=== PATIENT | female | born 1985 | race Caucasian/White ===

== ENCOUNTER → 2019-07-02 09:40 | Outpatient (BNVA) | payer MEDICAID, SELFPAY | PROVIDERS: Family Provider Nurse Practitioner; PCP Nurse Practitioner; Visit Provider Nurse Practitioner Family | DX: R11.0 Nausea (principal); J30.9 Allergic rhinitis, unspecified | CPT/HCPCS: 81025 ==

== ENCOUNTER → 2019-09-01 09:16 | Outpatient (BNVA) | payer MEDICAID, SELFPAY | PROVIDERS: Family Provider Nurse Practitioner; PCP Nurse Practitioner Family; Visit Provider Anesthesiology | DX: Z76.89 Persons encountering health services in other specified circumstances (principal) ==

== ENCOUNTER → 2019-12-09 10:01 | Outpatient (BNVA) | payer MEDICAID, SELFPAY | PROVIDERS: Family Provider Nurse Practitioner; PCP Nurse Practitioner Family; Visit Provider Nurse Practitioner | DX: M47.816 Spondylosis without myelopathy or radiculopathy, lumbar region (principal); M54.9 Dorsalgia, unspecified; Z79.891 Long term (current) use of opiate analgesic | CPT/HCPCS: 99213 ==

== ENCOUNTER → 2019-12-18 11:59 | Outpatient (BNVA) | payer MEDICAID, SELFPAY | PROVIDERS: Family Provider Nurse Practitioner; PCP Nurse Practitioner Family; Visit Provider Nurse Practitioner Family | DX: R53.83 Other fatigue (principal); I10 Essential (primary) hypertension; J30.9 Allergic rhinitis, unspecified; I34.1 Nonrheumatic mitral (valve) prolapse | CPT/HCPCS: 80053; 80061; 82306; 82607; 84443; 85025 ==

== ENCOUNTER → 2020-01-01 11:00 | Outpatient (BNVA) | payer MEDICAID, SELFPAY | PROVIDERS: Family Provider Nurse Practitioner; PCP Nurse Practitioner Family; Visit Provider Nurse Practitioner Family | DX: Z12.4 Encounter for screening for malignant neoplasm of cervix (principal); Z01.419 Encounter for gynecological examination (general) (routine) without abnormal findings; R53.83 Other fatigue | CPT/HCPCS: 88175 ==

== ENCOUNTER → 2020-03-07 10:56 | Outpatient (BNVA) | payer MEDICAID, SELFPAY | PROVIDERS: Family Provider Nurse Practitioner; PCP Nurse Practitioner Family; Visit Provider Nurse Practitioner Family | DX: E55.9 Vitamin D deficiency, unspecified (principal); R07.9 Chest pain, unspecified; R53.82 Chronic fatigue, unspecified | CPT/HCPCS: 82306 ==

== ENCOUNTER → 2020-04-06 13:49 | Outpatient (BNVA) | payer MEDICAID, SELFPAY | PROVIDERS: Family Provider Nurse Practitioner; PCP Nurse Practitioner Family; Visit Provider Anesthesiology | DX: M47.816 Spondylosis without myelopathy or radiculopathy, lumbar region (principal); M51.36 Other intervertebral disc degeneration, lumbar region; M51.26 Other intervertebral disc displacement, lumbar region; M54.9 Dorsalgia, unspecified; Z79.891 Long term (current) use of opiate analgesic | CPT/HCPCS: 99212; 99214 ==

== ENCOUNTER 2020-04-20 09:46 | Outpatient (CLI) | payer MEDICAID, SELFPAY ==
--- NOTE | 2020-04-20 10:15 | USCV_ITS ---
Yadiel Valdez Age: 34 Gender: F : 1985 Exam Date: 04/20/2020 10:15 Ordering Phys: Anju Solorzano MD ([email or web address]) Technologist: Rowena Pace [place] [facility] [place]: SVT BP: / HR: 58 Rhythm: Sinus Technical Quality: Adequate MEASUREMENTS (Male / Female) Normal Values 2D ECHO LV Diastolic Diameter PLAX 4.3 cm 4.2 - 5.9 / 3.9 - 5.3 cm LV Systolic Diameter PLAX 2.2 cm LV Chamber Size 3.3 cm IVS Diastolic Thickness 1.0 cm 0.6 - 1.0 / 0.6 - 0.9 cm IVS Systolic Thickness 1.5 cm LVPW Diastolic Thickness 1.1 cm 0.6 - 1.0 / 0.6 - 0.9 cm LVPW Systolic Thickness 1.6 cm RV Chamber Size 2.3 cm LVOT Diameter 2.0 cm LV Ejection Fraction 2D Teich 79.4 % LV Ejection Fraction MOD 2C 68.3 % LV Ejection Fraction 2C AL 70.7 % LA Diameter 3.2 cm LA Width 2.7 cm LA Height 4.1 cm RA Width 2.9 cm RA Height 3.8 cm Aorta at Sinotubular Diameter 2.9 cm M-MODE LV Diastolic Diameter MM 4.2 cm 4.2 - 5.9 / 3.9 - 5.3 cm LV Systolic Diameter MM 2.8 cm LV Ejection Fraction MM Teich 62.1 % IVS Diastolic Thickness MM 1.0 cm 0.6 - 1.0 / 0.6 - 0.9 cm IVS Systolic Thickness MM 1.6 cm LVPW Diastolic Thickness MM 1.2 cm 0.6 - 1.0 / 0.6 - 0.9 cm LVPW Systolic Thickness MM 1.5 cm RV Diastolic Diameter MM 1.2 cm Aortic Annulus Diameter 3.4 cm LA Ao Ratio MM 1.1 MV E Point Septal Separation 0.5 cm DOPPLER AV Peak Velocity 142.0 cm/s LVOT Peak Velocity 78.0 cm/s AV Area Cont Eq vti 2.2 cm squared AV Area Cont Eq pk 1.8 cm squared MV Area PHT 2.7 cm squared Mitral E to A Ratio 1.5 MV E' Velocity 52.5 cm/s Mitral E to MV E' Ratio 7.4 Mitral E to LV E' Lateral Ratio 6.7 Mitral E to LV E' Septal Ratio 8.2 TR Peak Velocity 240.7 cm/s TR Peak Gradient 23.2 mmHg TR Mean Velocity 183.2 cm/s TR Mean Gradient 14.5 mmHg TR Velocity Time Integral 77.0 cm TV Peak E Velocity 73.0 cm/s Right Atrial Pressure 3.0 mmHg Pulmonary Artery Systolic Pressu 26.2 mmHg PV Peak Velocity 64.0 cm/s RV Acceleration Time 0.1 s RV Ejection Time 0.3 s RV AcT/ET 0.3 FINDINGS Left Ventricle Normal left ventricular size and systolic function, EF 64 %. No regional wall motion abnormalities. Right Ventricle Normal right ventricular size and systolic function. Right Atrium Normal right atrial size. Left Atrium Normal left atrial size. Mitral Valve Mild mitral valve regurgitation. Multiple regurgitant jets were noted Aortic Valve No gross abnormalities noted Tricuspid Valve Mild tricuspid valve regurgitation. Pulmonic Valve No gross abnormalities noted Pericardium No pericardial or pleural effusion. Aorta Normal aortic annulus size. CONCLUSIONS Normal left ventricular size and systolic function, EF 64 %. No regional wall motion abnormalities. Mild tricuspid valve regurgitation. Mild mitral regurgitation with multiple regurgitant jets. Normal pulmonary artery peak systolic pressure of 26 mmHg There is no pericardial effusion. There are no intracardiac masses. No intraventricular shunts, based on color flow Doppler examination No previous study is available for comparison. Dr Anju Solorzano MD [facility] (Electronically Signed) Final Date: 20 April 2020 17:31 S
== END 2020-04-20 09:47 | disposition home or self-care (01) ==
LOC: RAD 09:51
PROVIDERS: PCP Nurse Practitioner Family; Visit Provider Internal Medicine Cardiovascular Disease
DX: R07.89 Other chest pain (principal); I34.1 Nonrheumatic mitral (valve) prolapse; I47.1 Supraventricular tachycardia; I08.1 Rheumatic disorders of both mitral and tricuspid valves
CPT/HCPCS: 93306

== ENCOUNTER 2020-05-02 08:25 | Outpatient (CLI) | payer MEDICAID, SELFPAY ==
--- NOTE | 2020-05-02 09:27 | NMCV_ITS ---
NM gretel perf SPECT r/s* [id number] Yadiel Valdez Age: 34 Gender: F : 1985 Exam Date: 05/02/2020 09:27 Ordering Phys: Anju Solorzano MD ([email or web address]) Technologist: CHELSEA Heck Exam Location: [facility] Indications: CHEST PAIN STRESS TEST [facility] IMAGE PROTOCOL Rest/Stress 1 Lexiscan Day Radiopharmaceutical Dose (mCi) Administration Site Administered by Rest: Tc-99m 10.6 IV CHELSEA Meek Sestamibi Stress:Tc-99m 32.9 IV CHELSEA Meek Sestamibi Rest: 02-May-2020 60 Discovery 630 Stress: 02-May-2020 30 Discovery 630 0.4mg Lexiscan. Images obtained in supine and prone position. SPECT RESULTS Technical Quality: Excellent Raw Data Analysis: Normal Image Corrections: No attenuation or motion correction applied Summed Stress Score: 13 Summed Rest Score: 2 Summed Difference Score: 11 PERFUSION FINDINGS Moderate area of moderately decreases uptake in the mid and apical inferior, mid inferolateral, apical lateral, apical septal and LV apex. Significant reversibility was noted in these regions except the apical lateral region. FUNCTIONAL RESULTS (calculated via Gated SPECT) Stress Image LV EF (%): 83 Stress EDV (mL):102 TID: 0.95 Stress ESV (mL):17 FUNCTIONAL FINDINGS: Segmental wall motion analysis revealing no gross wall motion of normalities. IMPRESSIONS 1. Myocardial perfusion imaging revealing moderate area of reversible defect in the inferior, inferolateral and apical regions, suggestive of ischemia predominantly in the distribution of the right coronary artery with some involvement of the left anterior descending and circumflex arteries. 2. Normal LV ejection fraction of 83%. 3. LV wall motion analysis revealing no gross wall motion normalities. 4. Normal LV volume. No similar previous studies available for comparison Dr Anju Solorzano MD [facility] (Electronically Signed) Final Date: 03 May 2020 12:48 S
--- NOTE | 2020-05-02 09:27 | ECG_ITS ---
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 Interpretive Statements NAME OF STUDY: LEXISCAN SESTAMIBI STRESS TEST INDICATION: Chest Pain, PROCEDURE: At the baseline, the EKG revealed normal sinus rhythm with a normal ST-T's. The baseline blood pressure was 123/75 mm Hg with a heart rate of 70 beats/min. Lexiscan was infused over a period of 20 seconds. A total of 0.4 milligrams of Lexiscan was infused. The stress phase was continued for a total of 5 minutes. Heart rate at the end of the stress phase was 99 with a blood pressure 138/79. The EKG at the peak infusion revealed no significant changes. Sestamibi was injected 20 seconds after the Lexiscan infusion. Blood pressure at the end of the recovery phase was 137/77 with a heart rate of 97 per minute. CONCLUSION: 1. No significant EKG changes with the LexiScan infusion 2. No LexiScan induced chest pain or cardiac arrhythmia 3. Normal blood pressure and heart rate response 4. Sestamibi/sestamibi perfusion scan pending; see separate report. Electronically Signed On 05-06-2020 16:31:31 IT CORPORATE RECRUITER by Anju Solorzano M.D. [id number]
[2020-05-02 09:28] VITALS: BMI 42.6
[2020-05-02 09:30] LABS: HCG Qualitative Urine. Negative (Negative)
[2020-05-02 11:26] VITALS: BP 144/76; PULSE 100
[2020-05-02] MEDS: regadenoson 0.4 Mg/5 ml Syringe IVP (11:26)
== END 2020-05-02 08:26 | disposition home or self-care (01) ==
LOC: CDL 08:26
PROVIDERS: PCP Nurse Practitioner Family; Visit Provider Internal Medicine Cardiovascular Disease
DX: R07.9 Chest pain, unspecified (principal)
CPT/HCPCS: 78452; 81025; 93017; A9500; J2785

== ENCOUNTER 2020-05-25 10:22 | Outpatient (CLI) | payer MEDICAID, SELFPAY ==
[2020-05-25 11:03] LABS: Basophils # 0.1 10^3/uL (0.0-0.1); Basophils % 1.4 %; Eosinophils # 0.3 10^3/uL (0.0-0.8); Eosinophils % 3.7 %; Hematocrit 42.8 % (37.0-47.0); Hemoglobin 13.4 g/dL (11.5-15.3); Lymphocytes % 26.9 %; Mean Corpuscular HGB Conc 31.3 g/dL (30.0-36.0); Mean Corpuscular Hemoglobin 26.6 pg (28.0-34.0); Mean Corpuscular Volume 85.1 fL (81-99); Mean Platelet Volume 10.2 fL (7.4-10.4); Monocytes # 0.4 10^3/uL (0.2-0.9); Monocytes % 5.1 %; Neutrophils # 4.59 10^3/uL (1.8-7.7); Neutrophils % 62.6 %; Nucleated Red Blood Cells % 0 %; Platelet Count 235 10^3/cmm (130-400); Red Blood Count 5.03 10^6/uL (4.1-5.3); Red Cell Distribution Width 12.9 % (12.1-15.1); White Blood Count 7.3 10^3/uL (4.0-10.0)
[2020-05-25 11:23] LABS: INR 1.01 (0.8-1.2)
[2020-05-25 11:39] LABS: Alanine Aminotransferase 17 U/L (0-33); Albumin Level 4.2 g/dL (3.5-5.2); Alkaline Phosphatase 78 IU/L (35-105); Anion Gap 13.2 (5-19); Aspartate Amino Transferase 15 U/L (0-32); Blood Urea Nitrogen 13 mg/dL (6-20); Calcium 9.2 mg/dL (8.5-10.5); Carbon Dioxide 26 mmol/L (22-29); Chloride 104 mmol/L (98-107); Globulin 3.2 g/dL (1.3-4.6); Glomerular Filtration Rate 113.1 mL/min (90-130); Glucose 102 mg/dL (65-115); Osmolality Calculated 288 mOsm/kg (285-295); Potassium 4.2 mmol/L (3.5-5.1); Sodium 139 mmol/L (136-145); Total Bilirubin 0.5 mg/dL (0.15-1.2); Total Protein 7.4 g/dL (6.6-8.7)
== END 2020-05-25 10:23 | disposition home or self-care (01) ==
LOC: LAB 10:24
PROVIDERS: PCP Nurse Practitioner Family; Visit Provider Internal Medicine Cardiovascular Disease
DX: R94.39 Abnormal result of other cardiovascular function study (principal)
CPT/HCPCS: 36415; 80053; 85025; 85610; 87635

== ENCOUNTER 2020-05-30 07:23 | Day surgery (SDC) | payer MEDICAID, SELFPAY ==
[2020-05-30] VITALS (14 sets, daily range): BP systolic 95–135; BP diastolic 61–88; PULSE 73–84; RESP 16–20; TEMP 36.8; O2SAT 95–100; BMI 41.3
--- NOTE | 2020-05-30 07:45 | XACV_ITS ---
Ht: 160 cm Wt: 106 kg BSA: 2.22 m2 Gender: Female : 1985 Any Known Allergies: Other Exam Priority: Routine Procedure(s): Procedure Description: Diagnostic procedure Procedure Description: Left ventriculography Procedure Description: Coronary Angiography Diagnostic Cath Status: Elective Diagnostic Findings * No significant disease noted in the Left Main, LAD, Circumflex, or RCA coronary arteries. * Coronary angiography shows right dominance. * The left main has a high and anterior takeoff. It was difficult to engage the vessel. Had to use multiple catheters. Finally with an AL-1 catheter we could not engage the vessel. The artery was found to have no significant stenotic lesions.. * The left and descending artery is a medium caliber vessel which appears to wrap around the LV apex minimally. Artery was found to have no significant stenotic lesions. * The left circumflex artery is a medium caliber vessel with no significant stenotic lesions. * The right coronary artery also is known to have no significant stenotic lesions. It appeared to be the dominant vessel.. PCI Status: Elective Conclusions 1. This is a 35-year-old white female with history of supraventricular tachycardia, presented with chest tightness and shortness of breath and easy fatigability. She had a myocardial perfusion imaging revealing moderate area of ischemia in the distribution of the right coronary artery. Because of the ongoing symptoms with a significant functional limitations, for further evaluation of her coronary status, a cardiac catheterization was recommended. Patient underwent left heart catheterization with a left and right coronary angiogram and LV angiogram today. The findings are as follows. 2. Left main was found to have a high and anterior takeoff. 3. N 4. o significant disease noted in the Left Main, LAD, Circumflex, or RCA coronary arteries. 5. Normal left ventricular systolic function. Ejection fraction of 55%. The LVEDP was 28 mmHg, suggestive of left ventricular diastolic dysfunction. Recommendations * Continue current medical management and risk factor modification. Diagnostic RX Recommendation: medical therapy and/or counseling Ventriculography Ejection Fraction: 55.0 % Left Ventriculography Findings: * The LV gram was performed in the BARBOUR view. The LV cavity was of normal size. There was no significant mitral valve prolapse or mitral regurgitation. Overall LV ejection fraction was around 55%. The LVEDP was markedly elevated at 28 mmHg. Pressures Phase:Rest AO : 118 / 83 ( 100 ) @ 3:21:00 AM 139 / 105 ( 122 ) @ 3:42:00 AM 140 / 89 ( 114 ) @ 3:50:00 AM 145 / 87 ( 113 ) @ 3:50:00 AM LV : 156 / 4 / @ 3:47:00 AM 149 / 5 / @ 3:47:00 AM 145 / 7 / @ 3:48:00 AM 147 / 0 / @ 3:49:00 AM 150 / 0 / @ 3:50:00 AM 151 / 0 / @ 3:50:00 AM Valves Phase:DefaultPhase AV : 11.0 @ 9:57:08 AM AV Mean Gradient: 16.0 @ 9:57:08 AM Clinical Evaluation EBL: 5mL-10mL Procedural Details Procedure Consent Obtained. Pre-Procedure Time Out. Identified patient by full name and date of as verbalized by the patient/guarantor. Does the consent match the physician's order: Yes. Accurate & Complete Informed Consent: Yes. Inpatient/Outpatient History & Physical on Chart: Yes. If H&P is completed, is and addenduem needed: No; If yes, is the addendum complete: N/A. Visualize and Verify Site with Patient/Guarantor: N/A. Relevant Radiology Images available: Yes. Pre-op teaching completed and patient verbalized understanding. The risks, benefits, and alternatives of sedation and/or procedure were discussed by physician. The patient agrees to continue. Procedure started. [facility] Clinical Fraility Score: 2: Well. Last Marker Indications: Worsening Angina. Chest Pain Symptom Assessment: Typical Angina Symptoms. Cardiovascular Instability: No. Correct patient, site and procedure confirmed by cath team. Current diagnosis: Chest Pain. PERRLA. 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 Lungs clear x 5 lobes. IV Site on Arrival: 20 gauge in the left anticubital. IV Fluids: 0.9% NaCl at KVO. 0 mL infused prior to cardiac cath technician. Pre Procedural Pulses: bilateral dorsalis pedis was 2+. Pre Procedural Pulses: bilateral posterior tibial was 2+. Pre Procedural Pulses: bilateral radial was 1+. Oxygen started at 2liters/min via nasal canula. bilateral groins was prepped with chloroprep then draped in the usual sterile fashion. right radial was prepped with chloroprep then draped in the usual sterile fashion. Physician notified. HCG results are negative. Baseline sample Acquired. HR: 83 BPM. Equipment: 5F - Radial. Heparinized Saline (2 units/mL), 1000 mL bag. Cardiac Cath Pack. Windation Manifold Kit Model BT 2000. Physician arrived. Physician scrubbed in. Immediate Pre-Procedure Time Out. Correct Patient: Yes; Correct Procedure: Yes; Correct Site: Yes; Correct Patient Position: Yes; Correct Supplies: Yes; Dried Flammable Prep: Yes; Blood Products Available: No;. Lidocaine 1% infiltrated to the right radial. Arterial access obtained. A 5 djiboutian Jeffrey catheter in over wire. Catheter out. A 5 djiboutian TIG catheter in over wire. Multiple views taken of right coronary artery. Catheter out. A 5 djiboutian Jeffrey catheter in over wire. Catheter out. A 5 djiboutian JL4 catheter in over wire. Bolus complete. Catheter out. A 6 djiboutian AL2 catheter in over wire. Catheter out. A 5french Multipurpose catheter in over wire. A 5 djiboutian AL1 catheter in over wire. Multiple views taken of left coronary artery. Catheter out. A 5 djiboutian Angled Pig catheter in over wire. EDP Sample taken: LV 156/4,31; HR: 87 BPM; SpO2: 100%. EDP Sample taken: LV 149/5,30; HR: 79 BPM; SpO2: 100%. EDP Sample taken: LV 145/7,31; HR: 76 BPM; SpO2: 100%. EDP Sample taken: LV 147/0,28; HR: 85 BPM; SpO2: 100%. LV gram performed in BARBOUR @ 10 mL/second for a total of 30 mL. EDP Sample taken: LV 150/0,29; HR: 91 BPM; SpO2: 100%. Pullback taken: LV 151/-1,32; AO 140/89(114); Mean: 16mmHg, Peak to Peak: 11mmHg, SEP: 22sec/min; HR: 92 BPM; SpO2: 100%. Catheter out. Physician scrubbed out. Physician review of cine films. A TR Band was successful obtaining hemostatsis at the Right Radial artery insertion site. Post Procedure: Pulses reassessed and unchanged. PERRLA. 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 No VTE prophylaxis required. Medication's Wasted: Lidocaine 1% = 18 mL. Medication's Wasted: Heparin = 1000 units mL. Medication's Wasted: Nitro = 49.8 mg. Total IV fluids: 294 mL. Contrast type used: Omnipaque 300 mgI/mL, 500 mL bottle. Post-op diagnosis: Diastolic Dysfunction. Complications: None. Estimated blood loss: 5mL-10mL. Vital chart was stopped. Procedure completed. Patient transferred by wheelchair to CPRU. Access Site Site: Right Radial artery Sheath Size: 6 Fr Hemostasis Method: TR Band Hemostasis Success: Successful Procedure Medications Start: 9:12 AM Stop: 9:12 AM Medication: Versed Amount: 1 mg Route: I.V. Start: 9:12 AM Stop: 9:12 AM Medication: Fentanyl Amount: 50 mcg Route: I.V. Start: 9:13 AM Stop: 9:13 AM Medication: Versed Amount: 1 mg Route: I.V. Start: 9:13 AM Stop: 9:13 AM Medication: Fentanyl Amount: 50 mcg Route: I.V. Start: 9:15 AM Stop: 9:15 AM Medication: Verapamil Amount: 5 mg Route: I.A. Start: 9:15 AM Stop: 9:15 AM Medication: 0.9% Saline Amount: 250 ml Route: I.V. bolus Start: 9:15 AM Stop: 9:15 AM Medication: Nitrogylcerin Amount: 200 mcg Route: I.A. Start: 9:17 AM Stop: 9:17 AM Medication: Heparin Amount: 5000 units Route: I.V. Start: 9:30 AM Stop: 9:30 AM Medication: Versed Amount: 1 mg Route: I.V. Start: 9:31 AM Stop: 9:31 AM Medication: Fentanyl Amount: 50 mcg Route: I.V. I, the attending physician, have reviewed and verified all procedure medications. Yes, all medications given per verbal order History/Risk Factors Hypertension: No Dyslipidemia: No Peripheral Arterial Disease (PAD): No Myocardial Infarction (MD): No Obesity: Yes Renal Disease: No Prior Interventions PCI: No CABG: No Valve Surgery: No Report Signatures Finalized by Dr Anju Solorzano MD [facility] on 05/31/2020 01:53 AM
[2020-05-30] MEDS: diphenhydrAMINE 50 mg Capsule PO (08:01)
[2020-05-30 08:48] LABS: HCG Qualitative Urine. Negative (Negative)
--- NOTE | 2020-05-30 09:05 | W.PM.OPSUD ---
Surgery/Procedure H&P Update DATE OF PROCEDURE: May 30, 2020 DATE H&P PERFORMED: 05/05/20 H&P UPDATE INFORMATION: I have reviewed H&P completed within last 30 days, I have examined patient prior to procedure and No changes to prior documentation PREOP DIAGNOSIS: Chest pain and abnormal myocardial perfusion imaging PLANNED PROCEDURE: Operation Date: 05/30/20 08:30 Proposed Procedures p Cardiac Catheterization 94863, R94.39(Left) - Anju Solorzano MD PATIENT REASSESSED PRIOR TO SEDATION, WITH NO CHANGE NOTED: Yes PHYSICAL EXAM: alert, clear to auscultation bilaterally and regular rate & rhythm AIRWAY EVAL/ANESTHESIA PLAN: normal airway, see other exam findings, ASA II, Monitored Anesthesia, Local Anesthesia, Risks, benefits & alternatives of sedation and/or procedure discussed and Patient agrees to continue as planned
--- NOTE | 2020-05-30 10:29 | SUR.PHASEII ---
POST PROCEDURE FLUIDS Post procedure fluid rate is NS at 125 ml/hr as ordered from Dr Solorzano.
--- NOTE | 2020-05-30 11:56 | SUR.PHASEII ---
TR BAND Band deflated. Removed. Covered with bandage. Jeanniela post instructions given. Will continue to monitor.
== END 2020-05-30 13:05 | disposition home or self-care (01) ==
PROVIDERS: PCP Nurse Practitioner Family; Visit Provider Internal Medicine Cardiovascular Disease
DX: I25.10 Atherosclerotic heart disease of native coronary artery without angina pectoris (principal); R94.39 Abnormal result of other cardiovascular function study; I47.1 Supraventricular tachycardia; I34.1 Nonrheumatic mitral (valve) prolapse
CPT/HCPCS: 12345; 36415; 81025; 93452; C1769; C1887; C1894; J1644; J2250; J3010; J3490; J7030; Q0163; Q9967

== ENCOUNTER → 2020-06-07 12:04 | Outpatient (BNVA) | payer BC, MEDICAID, SELFPAY | PROVIDERS: PCP Nurse Practitioner Family; Visit Provider Nurse Practitioner Family | DX: R94.39 Abnormal result of other cardiovascular function study (principal) | CPT/HCPCS: 80048 ==

== ENCOUNTER → 2020-07-01 13:44 | Outpatient (BNVA) | payer BC, MEDICAID, SELFPAY | PROVIDERS: PCP Nurse Practitioner Family; Visit Provider Anesthesiology | DX: M47.816 Spondylosis without myelopathy or radiculopathy, lumbar region (principal); M51.36 Other intervertebral disc degeneration, lumbar region; M51.26 Other intervertebral disc displacement, lumbar region; M54.9 Dorsalgia, unspecified; Z79.891 Long term (current) use of opiate analgesic; Z79.899 Other long term (current) drug therapy | CPT/HCPCS: 99213 ==

== ENCOUNTER → 2020-07-06 11:11 | Outpatient (BNVA) | payer BC, MEDICAID, SELFPAY | PROVIDERS: PCP Nurse Practitioner Family; Visit Provider Nurse Practitioner Family | DX: E55.9 Vitamin D deficiency, unspecified (principal); I34.1 Nonrheumatic mitral (valve) prolapse; N63.0 Unspecified lump in unspecified breast | CPT/HCPCS: 80053; 80061; 82306; 82607; 84439; 84443; 85025 ==

== ENCOUNTER 2020-08-08 08:21 | Outpatient (CLI) | payer BC, SELFPAY ==
--- NOTE | 2020-08-08 08:29 | US_ITS ---
WS: [id number] DIAGNOSTIC BILATERAL DIGITAL MAMMOGRAM WITH CAD LEFT breast ultrasound, limited HISTORY: N63.0 - Unspecified lump in unspecified breast COMPARISON: None available. TECHNIQUE: Bilateral craniocaudad, mediolateral oblique, and mediolateral views are submitted. Spot c ompression LEFT CC and MLO. Computer aided detection utilized. Breast composition: There are scattered areas of fibroglandular density. No suspicious masses or calcifications or distortion. No abnormality noted in the anterior lateral LE FT breast in the palpable nodule region. LEFT breast ultrasound, limited. Palpable area corresponds to an ovoid cyst measuring 5 x 7 x 3 mm at 10:00, 4 cm from the nipple. No solid component. US/US breast LT limited* [id number] IMPRESSION: BI-RADS: 2-Benign FOLLOW UP: 1 Year Follow-up
--- NOTE | 2020-08-08 09:00 | MM_ITS ---
WS: [id number] DIAGNOSTIC BILATERAL DIGITAL MAMMOGRAM WITH CAD LEFT breast ultrasound, limited HISTORY: N63.0 - Unspecified lump in unspecified breast COMPARISON: None available. TECHNIQUE: Bilateral craniocaudad, mediolateral oblique, and mediolateral views are submitted. Spot c ompression LEFT CC and MLO. Computer aided detection utilized. Breast composition: There are scattered areas of fibroglandular density. No suspicious masses or calcifications or distortion. No abnormality noted in the anterior lateral LE FT breast in the palpable nodule region. LEFT breast ultrasound, limited. Palpable area corresponds to an ovoid cyst measuring 5 x 7 x 3 mm at 10:00, 4 cm from the nipple. No solid component. MM/[place] [id number] IMPRESSION: BI-RADS: 2-Benign FOLLOW UP: 1 Year Follow-up
== END 2020-08-08 08:22 | disposition home or self-care (01) ==
LOC: RADSHAW 08:25
PROVIDERS: PCP Nurse Practitioner Family; Visit Provider Nurse Practitioner Family
DX: N63.22 Unspecified lump in the left breast, upper inner quadrant (principal)
CPT/HCPCS: 76642; 77066

== ENCOUNTER → 2020-09-16 13:40 | Outpatient (BNVA) | payer BC, SELFPAY | PROVIDERS: PCP Nurse Practitioner Family; Visit Provider Nurse Practitioner Family | DX: E55.9 Vitamin D deficiency, unspecified (principal); R53.82 Chronic fatigue, unspecified; R06.83 Snoring; I10 Essential (primary) hypertension; J30.9 Allergic rhinitis, unspecified | CPT/HCPCS: 82306 ==

== ENCOUNTER → 2020-09-30 12:45 | Outpatient (BNVA) | payer BC, SELFPAY | PROVIDERS: PCP Nurse Practitioner Family; Visit Provider Anesthesiology | DX: M47.816 Spondylosis without myelopathy or radiculopathy, lumbar region (principal); M51.36 Other intervertebral disc degeneration, lumbar region; M51.26 Other intervertebral disc displacement, lumbar region; M54.9 Dorsalgia, unspecified; M79.2 Neuralgia and neuritis, unspecified; Z79.891 Long term (current) use of opiate analgesic | CPT/HCPCS: 99213 ==

== ENCOUNTER 2020-12-11 20:39 | Emergency (ER) | payer SELFPAY ==
[2020-12-11 21:23] VITALS: BP 121/83; PULSE 99; RESP 20; TEMP 37.2; O2SAT 92; BMI 40.7
[2020-12-11 22:08] LABS: SARS Covid-2 Antigen Negative (Negative)
--- NOTE | 2020-12-11 22:14 | XRR_ITS ---
PROCEDURE INFORMATION: Exam: XR Chest Exam date and time: 12/11/2020 10:14 PM Age: 35 years old Clinical indication: Dyspnea; Additional info: SOB TECHNIQUE: Imaging protocol: XR of the chest. Views: 1 view. COMPARISON: No relevant prior studies available. FINDINGS: Lungs: There are some increased interstitial markings seen in the lower hemithoraces bilaterally possibly representing atelectasis although a bilateral interstitial pneumonitis cannot be entirely excluded. Pleural spaces: Unremarkable. No pleural effusion. No pneumothorax. Heart/Mediastinum: Unremarkable. No cardiomegaly. Bones/joints: Unremarkable. XR/XR chest 1V portable [id number] IMPRESSION: Increased interstitial opacities present in the lower hemithoraces bilaterally may represent atelectasis although a bilateral interstitial pneumonitis cannot be excluded.
--- NOTE | 2020-12-11 22:16 | ECG_ITS ---
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 Measurements Intervals Show Low Rate: 92 P: 35 [place]: 149 QRS: -6 QRSD: 90 T: 31 QT: 350 QTc: 435 Interpretive Statements SINUS RHYTHM LOW QRS VOLTAGE IN PRECORDIAL LEADS [QRS DEFLECTION < 1.0 mV IN CHEST LEADS] PATTERN CONSISTENT WITH PULMONARY DISEASE No previous ECG available for comparison Electronically Signed On 12-12-2020 18:10:21 CDT by Hector Cuba M.D. [id number]
--- NOTE | 2020-12-11 22:17 | W.ED.WEAKNES ---
HPI - Weakness General: Chief complaint: Weakness Stated complaint: BODY ACHES, NAUSEA, GEN MALAISE Time Seen by Provider: 12/11/20 22:08 History of Present Illness: HPI Narrative: Patient is a 35-year-old female comes to the ED with body aches, shortness of breath and nausea. Patient says symptoms started approximately 5 days ago. She says the shortness of breath started this morning and she describes it as a chest tightness. She has had nausea but is only dry heaves for the past couple days. She has generalized body aches and says she just does not feel that well. Denies any known COVID-19 positive patient contacts. Denies any abdominal pain, bladder or bowel symptoms. Associated symptoms: Reports nausea and vomiting; Denies chest pain, chills, dysuria, fever(s) or headache(s) Review of Systems Const: Reports: body aches, fatigue and malaise; Denies: fever(s) or chills Eyes: Denies: change in vision or eye discomfort ENMT: Denies: throat pain, odynophagia, nasal discharge or nasal congestion Card: Denies: chest pain, palpitations, edema, swelling of feet/ankles, dyspnea on exertion or orthopnea Resp: Reports: dyspnea; Denies: productive cough or non-productive cough GI: Reports: nausea and vomiting; Denies: abdominal pain, diarrhea, constipation or hematochezia : Denies: flank pain, dysuria or hematuria Musc: Denies: neck pain, back pain or extremity swelling Skin/Breast: Denies: rash or new lesions Neuro: Denies: headache(s), numbness in extremities or weakness in extremities [facility] ED PFSH: Medical History Abnormal cardiovascular stress test DDD (degenerative disc disease), lumbar Long-term use of high-risk medication Lumbar spondylosis Mitral valve prolapse Mitral valve prolapse Neuropathic pain Other intervertebral disc displacement, lumbar region Supraventricular tachycardia Family History Mother Lung disease COPD/ ASTHMA Myocardial infarct AT AGE 44 Hypertension Bleeding disorder CAD (coronary artery disease) Stroke Father CAD (coronary artery disease) Diabetes Family/Other Cancer Grandmother Cancer Denies family history of Clotting disorder Dementia Chronic kidney disease (CKD) Suicide Anesthesia complication Social History Smoking and tobacco status: never smoked Second hand smoke exposure: Yes Alcohol intake: never Lives independently: No Household members: family Marital status: History of recent travel: No Current gender identity: Female Physical Exam Const: COMMON NORMALS: no acute distress, patient oriented x3, healthy appearing and alert GENERAL APPEARANCE: cooperative and comfortable HENMT: COMMON NORMALS: normocephalic HEAD & SCALP: normocephalic MOUTH: Normal oral and palatal mucosa present THROAT: posterior oropharynx normal and uvula midline Eye: COMMON NORMALS: Equal, round and reactive pupils present PUPIL: Yes Equal, round and reactive pupils present Neck/C-Spine: COMMON NORMALS: supple GENERAL: Yes normal visual inspection Resp: COMMON NORMALS: normal respiratory effort, No retractions, No use of accessory muscles and clear to auscultation bilaterally AUSCULTATION: clear to auscultation bilaterally Cardio: COMMON NORMALS: regular rate, regular rhythm, S1 normal heart sound present, S2 normal heart sound present, No gallops present (Cardio), No clicks present (Cardio), No murmurs present (Cardio) and Peripheral pulses 2+ throughout RATE: regular rate RHYTHM: regular rhythm HEART SOUNDS: S1 normal heart sound present and S2 normal heart sound present PERIPHERAL PULSES: Peripheral pulses 2+ throughout GI: COMMON NORMALS: Normal to inspection, nondistended, normoactive bowel sounds present, Soft to palpation, non-tender and no masses PALPATION: Yes Soft to palpation : COMMON NORMALS: Yes no CVA tenderness BLADDER/KIDNEY EXAM: Yes no CVA tenderness Back/Pelvis: COMMON NORMALS: no CVA tenderness Extremity: COMMON NORMALS: normal to inspection Neuro: COMMON NORMALS: patient oriented x3 and moves all extremities SENSORIUM/ORIENTATION: Yes alert Skin: GENERAL SKIN EXAM: dry skin Course Vital Signs: Vital signs: Vital Signs Temperature 98.9 F 12/11/20 21:23 Pulse Rate 99 12/12/20 00:19 Respiratory Rate 18 12/12/20 00:19 Blood Pressure 136/83 12/12/20 00:19 Pulse Oximetry 94 12/12/20 00:19 MDM - Weakness MDM Narrative: Medical decision making narrative: Patient is a 35-year-old female comes to the ED with nausea/vomiting, body aches. Patient appears nontoxic and is in no acute distress or pain. Vitals are stable. CBC and CMP were unremarkable. UA showed signs of a UTI. Chest x-ray showed some bilateral pneumonitis or atelectasis seen. EKG showed normal sinus rhythm with no ST segment elevation or depression seen. Troponin negative. Covid negative. Patient was diagnosed with a viral syndrome and UTI. She was discharged home with a prescription for cefdinir and Zofran. Follow-up with PCP in 7 to 10 days for reevaluation. Return to ED precautions given. Patient understood and agreed with plan. Lab Data: Attestation: I reviewed the patient's lab results. Labs: Lab Results 12/11/20 12/11/20 12/11/20 Range/Units 21:33 22:49 23:08 WBC 2.3 L (4.0-10.0) 10^3/ uL RBC 4.79 (4.1-5.3) 10^6/u L Hgb 12.6 (11.5-15.3) g/dL Hct 38.8 (37.0-47.0) % MCV 81.0 (81-99) fL MCH 26.3 L (28.0-34.0) pg MCHC 32.5 (30.0-36.0) g/dL RDW 13.3 (12.1-15.1) % Plt Count 80 L (130-400) 10^3/c mm MPV 10.9 H (7.4-10.4) fL Neut % (Auto) 76.1 % Lymph % (Auto) 18.7 % [place] % (Auto) 5.2 % Eos % (Auto) 0.0 % Baso % (Auto) 0.0 % Neut # (Auto) 1.75 L (1.8-7.7) 10^3/u L Lymph # (Auto) 0.4 L (0.8-4.8) 10^3/u L [place] # (Auto) 0.1 L (0.2-0.9) 10^3/u L Eos # (Auto) 0.0 (0.0-0.8) 10^3/u L Baso # (Auto) 0.0 (0.0-0.1) 10^3/u L Nucleated RBC % (a uto) 0 % Nucleated RBCs # 0.0 /100WBC Sodium (136-145) mmol/L Potassium (3.5-5.1) mmol/L Chloride (98-107) mmol/L Carbon Dioxide (22-29) mmol/L Anion Gap (5-19) BUN (6-20) mg/dL Creatinine (0.5-0.9) mg/dL GFR Calculation (90-130) mL/min Glucose (65-115) mg/dL Calculated Osmolal ity (285-295) mOsm/k g Calcium (8.5-10.5) mg/dL Total Bilirubin (0.15-1.2) mg/dL AST (0-32) U/L ALT (0-33) U/L Alkaline Phosphata se (35-105) IU/L Troponin T Baselin e (0-10) ng/L Total Protein (6.6-8.7) g/dL Albumin (3.5-5.2) g/dL Globulin (1.3-4.6) g/dL Lipase (13-60) U/L HCG, Qual (Negative) Urine Color Yellow (Yellow) Urine Appearance Sl hazy (CLEAR) Urine pH 5 (5-7) Ur Specific Gravit y 1.020 (1.005-1.030) Urine Protein 1+ H (Negative) Urine Glucose (UA) Norm (Normal) Urine Ketones 3+ H (Negative) Urine Blood 3+ H (Negative) Urine Nitrate Negative (Negative) Urine Bilirubin Neg (Negative) Urine Urobilinogen 1 H (Negative) mg/dL Ur Leukocyte Bettina ase 2+ H (Negative) Urine RBC 10-15 H (0-2) /hpf Urine WBC 15-25 H (0-5) /hpf Ur Squamous Epith Cells 25-40 H (0-5) /hpf Amorphous Sediment Not Reportable Urine Bacteria 2+ H (NONE) /hpf Urine Mucus 2+ /hpf SARS-CoV-2 Ag (Rap id) Negative (Negative) 12/11/20 12/11/20 12/11/20 Range/Units 23:08 23:08 23:08 WBC (4.0-10.0) 10^3/ uL RBC (4.1-5.3) 10^6/u L Hgb (11.5-15.3) g/dL Hct (37.0-47.0) % MCV (81-99) fL MCH (28.0-34.0) pg MCHC (30.0-36.0) g/dL RDW (12.1-15.1) % Plt Count (130-400) 10^3/c mm MPV (7.4-10.4) fL Neut % (Auto) % Lymph % (Auto) % [place] % (Auto) % Eos % (Auto) % Baso % (Auto) % Neut # (Auto) (1.8-7.7) 10^3/u L Lymph # (Auto) (0.8-4.8) 10^3/u L [place] # (Auto) (0.2-0.9) 10^3/u L Eos # (Auto) (0.0-0.8) 10^3/u L Baso # (Auto) (0.0-0.1) 10^3/u L Nucleated RBC % (a uto) % Nucleated RBCs # /100WBC Sodium 135 L (136-145) mmol/L Potassium 3.4 L (3.5-5.1) mmol/L Chloride 98 (98-107) mmol/L Carbon Dioxide 21 L (22-29) mmol/L Anion Gap 19.4 H (5-19) BUN 8 (6-20) mg/dL Creatinine 0.7 (0.5-0.9) mg/dL GFR Calculation 94.2 (90-130) mL/min Glucose 107 (65-115) mg/dL Calculated Osmolal ity 279 L (285-295) mOsm/k g Calcium 8.4 L (8.5-10.5) mg/dL Total Bilirubin 0.4 (0.15-1.2) mg/dL AST 32 (0-32) U/L ALT 21 (0-33) U/L Alkaline Phosphata se 54 (35-105) IU/L Troponin T Baselin e 6 (0-10) ng/L Total Protein 7.0 (6.6-8.7) g/dL Albumin 3.8 (3.5-5.2) g/dL Globulin 3.2 (1.3-4.6) g/dL Lipase 36 (13-60) U/L HCG, Qual Negative (Negative) Urine Color (Yellow) Urine Appearance (CLEAR) Urine pH (5-7) Ur Specific Gravit y (1.005-1.030) Urine Protein (Negative) Urine Glucose (UA) (Normal) Urine Ketones (Negative) Urine Blood (Negative) Urine Nitrate (Negative) Urine Bilirubin (Negative) Urine Urobilinogen (Negative) mg/dL Ur Leukocyte Bettina ase (Negative) Urine RBC (0-2) /hpf Urine WBC (0-5) /hpf Ur Squamous Epith Cells (0-5) /hpf Amorphous Sediment Urine Bacteria (NONE) /hpf Urine Mucus /hpf SARS-CoV-2 Ag (Rap id) (Negative) Imaging Data^: CXR: Attestation: I personally reviewed and interpreted this imaging study as follows: Radiologist's impression: [address] [address] XRay Report Signed Patient: Yadiel Valedz Unit #: [id number] : 1985 Age/Sex: 35 / F ADM Date: 12/11/20 Loc: ER Room/Bed: Attending Dr: Ordering Provider/Ordering MD: Jose Juan De Anda Date of Service: 12/11/20 Procedure(s): XR chest 1V portable [id number] Accession Number(s): [id number] Report Number: [id number] PROCEDURE INFORMATION: Exam: XR Chest Exam date and time: 12/11/2020 10:14 PM Age: 35 years old Clinical indication: Dyspnea; Additional info: SOB TECHNIQUE: Imaging protocol: XR of the chest. Views: 1 view. COMPARISON: No relevant prior studies available. FINDINGS: Lungs: There are some increased interstitial markings seen in the lower hemithoraces bilaterally possibly representing atelectasis although a bilateral interstitial pneumonitis cannot be entirely excluded. Pleural spaces: Unremarkable. No pleural effusion. No pneumothorax. Heart/Mediastinum: Unremarkable. No cardiomegaly. Bones/joints: Unremarkable. XR/XR chest 1V portable [id number] IMPRESSION: Increased interstitial opacities present in the lower hemithoraces bilaterally may represent atelectasis although a bilateral interstitial pneumonitis cannot be excluded. Dictated By: Damion Lion MD Signed By: Damion Lion MD Signed Date/Time: 12/11/202331 DD/ 30 EKG Data^: EKG 1: Attestation: I personally reviewed and interpreted this EKG as follows: EKG interpretation date: 12/11/20 Interpretation: Sinus rhythm, 92 bpm, no ST segment elevation or depression noted. Discharge Plan Discharge Patient Disposition: Home Clinical Impression: Viral syndrome UTI (urinary tract infection) Qualifiers: Urinary tract infection type: acute cystitis Hematuria presence: with hematuria Qualified Code(s): N30.01 - Acute cystitis with hematuria Condition: Stable Prescriptions: New cefdinir 300 mg capsule 300 mg PO BID 10 Days Qty: 20 RF: 0 Zofran 4 mg tablet 4 mg PO Q8H Qty: 15 RF: 0 No Action isosorbide mononitrate 30 mg tablet extended release 24 hr 30 mg PO DAILY 30 Days Qty: 30 RF: 5 acetaminophen-codeine 300-60 mg tablet 1 tab PO TID PRN (Reason: pain) 30 Days Qty: 90 RF: 2 baclofen 10 mg tablet 10 mg PO BID PRN (Reason: spasms) 30 Days Qty: 60 RF: 2 gabapentin 400 mg capsule 400 mg PO TID 30 Days Qty: 90 RF: 2 meloxicam [Mobic] 15 mg tablet 15 mg PO DAILY 30 Days Qty: 30 RF: 2 metoprolol succinate 50 mg tablet extended release 24 hr See Rx Instructions .ROUTE .COMPLEX Qty: 90 RF: 1 loratadine [Claritin] 10 mg tablet 10 mg PO QDAY Qty: 90 RF: 1 cholecalciferol (vitamin D3) 1,250 mcg (50,000 unit) capsule 50,000 unit PO .weekly Qty: 4 RF: 2 nitroglycerin [Nitrostat] 0.4 mg tablet, sublingual 0.4 mg SUBLINGUAL Q5M PRN (Reason: chest pain) 30 Days Qty: 30 RF: 3 Discharge Orders: Discharge ED (Routine); Ordered 12/12/20 Ordered By: Jose Juan De Anda Referrals: Surekha Apodaca FNP [Primary Care Provider] - Discharge Diet: Regular Discharge Activity: Increase activity as tolerated Patient Instructions: Urinary Tract Infection in Women (ED), Viral Syndrome (ED) Activity Restrictions/Additional Instructions: Follow-up with medical provider as directed in 7 to 10 days for reevaluation. Take medications as prescribed. Return to the ER or your medical provider if condition worsens. Please read and understand discharge instructions. Thank you for choosing [facility] for your healthcare needs today. Please realize this is an emergency room and that we are providing you with a medical screening exam and this may not be complete and all inclusive of all the testing and or work up that you may need to determine your ailment or severity of your illness. It is very important that you follow up as instructed or that you return to the Emergency Department should you have concerns or if your condition changes or worsens in any way. Coding Level of Care Code ED High Risk Ob for Martin Fwd Exam Comprehensive
[2020-12-11] MEDS: sodium chloride 0.9% 1,000 ML 999 ML IV (23:12)
[2020-12-11 23:20] LABS: Hematocrit 38.8 % (37.0-47.0); Hemoglobin 12.6 g/dL (11.5-15.3); Lymphocytes # 0.4 10^3/uL (0.8-4.8); Lymphocytes % 18.7 %; Mean Corpuscular HGB Conc 32.5 g/dL (30.0-36.0); Mean Corpuscular Hemoglobin 26.3 pg (28.0-34.0); Mean Platelet Volume 10.9 fL (7.4-10.4); Monocytes # 0.1 10^3/uL (0.2-0.9); Monocytes % 5.2 %; Neutrophils # 1.75 10^3/uL (1.8-7.7); Neutrophils % 76.1 %; Nucleated Red Blood Cells % 0 %; Platelet Count 80 10^3/cmm (130-400); Red Blood Count 4.79 10^6/uL (4.1-5.3); Red Cell Distribution Width 13.3 % (12.1-15.1); White Blood Count 2.3 10^3/uL (4.0-10.0)
[2020-12-11 23:20] LABS: Bilirubin Urine Neg (Negative); Blood Urine 3+ (Negative); Glucose Urine UA Norm (Normal); Ketones Urine 3+ (Negative); Nitrate Urine Negative (Negative); Protein Urine 1+ (Negative); Urine Appearance SL Hazy (CLEAR); Urine Color Yellow (Yellow); pH Urine 5 (5-7)
[2020-12-11 23:21] LABS: Leukocyte Esterase Urine 2+ (Negative); Urobilinogen Urine 1 mg/dL (Negative); WBC Urine 15-25 /hpf (0-5)
[2020-12-11 23:22] LABS: Add Urine Culture? No; Bacteria Urine 2+ /hpf; Mucus Urine 2+ /hpf; Squamous Epithelial Cell Urine 25-40 /hpf (0-5)
[2020-12-11 23:31] LABS: HCG, Serum Qual Negative (Negative)
[2020-12-11 23:39] LABS: Troponin(5th) Baseline 6 ng/L (0-10)
[2020-12-11 23:40] LABS: Alanine Aminotransferase 21 U/L (0-33); Albumin Level 3.8 g/dL (3.5-5.2); Alkaline Phosphatase 54 IU/L (35-105); Aspartate Amino Transferase 32 U/L (0-32); Blood Urea Nitrogen 8 mg/dL (6-20); Calcium 8.4 mg/dL (8.5-10.5); Carbon Dioxide 21 mmol/L (22-29); Chloride 98 mmol/L (98-107); Globulin 3.2 g/dL (1.3-4.6); Glomerular Filtration Rate 94.2 mL/min (90-130); Glucose 107 mg/dL (65-115); Lipase 36 U/L (13-60); Osmolality Calculated 279 mOsm/kg (285-295); Sodium 135 mmol/L (136-145); Total Bilirubin 0.4 mg/dL (0.15-1.2)
[2020-12-11 23:47] LABS: Anion Gap 19.4 (5-19); Potassium 3.4 mmol/L (3.5-5.1)
[2020-12-12] MEDS: cefdinir 300 MG CAPSULE PO (00:14)
[2020-12-12] MEDS: potassium chloride ER 20 mEq Tablet PO (00:14)
[2020-12-12 00:19] VITALS: BP 136/83; PULSE 99; RESP 18; O2SAT 94
== END 2020-12-12 00:19 | disposition home or self-care (01) ==
PROVIDERS: Emergency Medicine; Emergency Provider Physician Assistant; PCP Nurse Practitioner Family
DX: N30.01 Acute cystitis with hematuria (principal); B34.9 Viral infection, unspecified; Z77.22 Contact with and (suspected) exposure to environmental tobacco smoke (acute) (chronic); Z20.822 Contact with and (suspected) exposure to COVID-19
CPT/HCPCS: 71045; 80053; 81001; 83690; 84484; 84703; 85025; 87426; 93005; 96360; 99283; J7030

== ENCOUNTER → 2022-11-13 15:09 | Outpatient (BNVA) | payer MEDICAID, SELFPAY | PROVIDERS: PCP Nurse Practitioner Family; Visit Provider Nurse Practitioner Family | DX: I10 Essential (primary) hypertension (principal); E55.9 Vitamin D deficiency, unspecified | CPT/HCPCS: 80053; 80061; 82306; 84443; 85025 ==

== ENCOUNTER 2022-12-21 11:50 | Outpatient (CLI) | payer MEDICAID, SELFPAY ==
--- NOTE | 2022-12-21 11:51 | XR_ITS ---
WS: [email or web address] Exam: XR hip BI m 5V wo/w pel* [id number] Date/Time of Exam: 12/21/2022 11:57 AM Reason For Exam: M25.551 - Pain in right hip The bilateral hips show no fracture or dislocation. The joint compartments are well preserved. Normal bilateral soft tissues. XR/XR hip BI m 5V wo/w pel* [id number] IMPRESSION: 1. Normal bilateral hips.
--- NOTE | 2022-12-21 11:51 | XR_ITS ---
WS: [email or web address] Exam: XR lumbar spine 2-3V* [id number] Date/Time of Exam: 12/21/2022 11:57 AM Reason For Exam: M51.36 - Other intervertebral disc degeneration, lumbar r... Comparison 01/09/2018. No fracture or dislocation noted. Probable L4 pars interarticularis defect. No listhesis noted. Disc spaces are well preserved. Remaining posterior elements appear normal. No scoliosis. XR/XR lumbar spine 2-3V* [id number] IMPRESSION: 1. Probable pars interarticularis defect of L4 but no spondylolisthesis. The jeff mbar spine is otherwise unremarkable.
== END 2022-12-21 11:51 | disposition home or self-care (01) ==
LOC: RAD 11:51
PROVIDERS: PCP Nurse Practitioner Family; Visit Provider Nurse Practitioner Family
DX: M25.551 Pain in right hip (principal); M25.552 Pain in left hip; M51.36 Other intervertebral disc degeneration, lumbar region
CPT/HCPCS: 72100; 73523

== ENCOUNTER → 2023-01-09 09:40 | Outpatient (BNVA) | payer MEDICAID, SELFPAY | PROVIDERS: PCP Nurse Practitioner Family; Visit Provider Nurse Practitioner Family | DX: M51.36 Other intervertebral disc degeneration, lumbar region (principal) | CPT/HCPCS: 80053; 82306; 83735; 85025 ==

== ENCOUNTER → 2023-03-26 15:29 | Outpatient (BNVA) | payer MEDICAID, SELFPAY | PROVIDERS: PCP Nurse Practitioner Family; Visit Provider Physician Assistant | DX: M54.50 Low back pain, unspecified; G89.29 Other chronic pain; M54.2 Cervicalgia | CPT/HCPCS: 72100 ==

== ENCOUNTER → 2023-06-06 10:08 | Outpatient (BNVA) | payer MEDICAID, SELFPAY | PROVIDERS: PCP Nurse Practitioner Family; Visit Provider Physician Assistant | DX: G89.29 Other chronic pain; M51.26 Other intervertebral disc displacement, lumbar region; M51.36 Other intervertebral disc degeneration, lumbar region; M47.816 Spondylosis without myelopathy or radiculopathy, lumbar region | CPT/HCPCS: 72100 ==

== ENCOUNTER 2023-07-12 10:18 | Outpatient (CLI) | payer MEDICAID, SELFPAY ==
--- NOTE | 2023-07-12 11:00 | MR_ITS ---
WS: [id number] MRI LUMBAR SPINE NONCONTRAST HISTORY: lumbar pain, RIGHT leg radiculopathy. COMPARISON: 11/23/2017 TECHNIQUE: Sagittal and axial multisequence imaging is submitted. T11 hemangioma. Normal lumbar alignment with no compression fractures or marrow edema. Disc spaces and vertebral body heights are well-preserved. Conus terminates normally at L1-2 disc level. L1-L2: Normal. L2-L3: Normal. L3-L4: Mild disc bulging and facet arthritis. L4-L5: Mild annular disc bulging with ligamentum flavum and facet arthritis. There is mild disc conta ct on the exiting L4 nerve roots bilaterally. Mild foraminal stenosis. Very mild subarticular recess encroachment. L5-S1: Mild annular disc bulging encroaching upon the ventral thecal sac. There is very minimal disc upon the ventral thecal sac and foramina with no significant stenosis or nerve root contact. Bilateral ovarian cysts. The largest on the LEFT 3.1 x 2.4 cm. IMPRESSION: 1. No high-grade central or foraminal stenosis. 2. Mild disc bulging with minimal contact on the exiting L4 nerve roots, bilateral. Very similar to the prior study from 11/23/2017. 3. No lumbar spine fracture. 4. Bilateral ovarian cysts.
== END 2023-07-12 10:19 | disposition home or self-care (01) ==
LOC: RAD 10:19
PROVIDERS: PCP Nurse Practitioner Family; Visit Provider Physician Assistant
DX: M54.50 Low back pain, unspecified (principal); G89.29 Other chronic pain; M54.16 Radiculopathy, lumbar region; N83.202 Unspecified ovarian cyst, left side; N83.201 Unspecified ovarian cyst, right side
CPT/HCPCS: 72148

== ENCOUNTER → 2023-08-07 15:30 | Outpatient (BNVA) | payer MEDICAID, SELFPAY | PROVIDERS: PCP Nurse Practitioner Family; Visit Provider Nurse Practitioner Family | DX: R53.82 Chronic fatigue, unspecified (principal); E55.9 Vitamin D deficiency, unspecified; R73.9 Hyperglycemia, unspecified | CPT/HCPCS: 80053; 82306; 82607; 83036; 83735; 84443; 85025 ==

== ENCOUNTER 2023-08-12 10:20 | Outpatient (CLI) | payer MEDICAID, SELFPAY ==
--- NOTE | 2023-08-12 10:45 | US_ITS ---
WS: [email or web address] RIGHT UPPER QUADRANT ULTRASOUND HISTORY: R10.11 - Right upper quadrant pain COMPARISON: None available. Liver: 14.7 cm in length. Normal size liver and echogenicity. No bile duct dilatation or mass. Portal Vein: Normal hepatopetal flow with monophasic waveform. Gallbladder: Normally distended gallbladder with no stones or wall thickening. CBD: 0.3 cm Pancreas: Obscured. Right kidney: 12.5 cm in length. Normal size and echogenicity. No hydronephrosis or mass. Aorta and IVC: Unremarkable abdominal aorta and IVC. No ascites. IMPRESSION: 1. Normal gallbladder. 2. No bile duct dilatation.
== END 2023-08-12 10:21 | disposition home or self-care (01) ==
LOC: RAD 10:21
PROVIDERS: PCP Nurse Practitioner Family; Visit Provider Nurse Practitioner Family
DX: R10.11 Right upper quadrant pain (principal)
CPT/HCPCS: 76705

== ENCOUNTER → 2023-08-15 14:20 | Outpatient (BNVA) | payer MEDICAID, SELFPAY | PROVIDERS: PCP Nurse Practitioner Family; Visit Provider Orthopaedic Surgery | DX: M54.50 Low back pain, unspecified (principal); M48.062 Spinal stenosis, lumbar region with neurogenic claudication | CPT/HCPCS: 36415; 72110; 80053; 81001; 85025; 87086 ==

== ENCOUNTER 2023-08-29 09:44 | Outpatient (CLI) | payer MEDICAID, SELFPAY ==
--- NOTE | 2023-08-29 10:00 | NM_ITS ---
WS: [id number] NUCLEAR MEDICINE HIDA SCAN WITH GALLBLADDER EJECTION FRACTION HISTORY: R10.11 - Right upper quadrant pain COMPARISON: Ultrasound 08/12/2023 TECHNIQUE: The patient was intravenously injected with 8.1 mCi of TC99m Mebrofenin. Immediate imaging over the right upper quadrant was followed by 5 minute image and additional images for a total of 60 minutes. Normal uptake of radiotracer throughout the liver. Activity identified in the gallbladder at 15 minutes and well distended by 60 minutes. Activity in the proximal small bowel was seen by 60 minutes. Good washout of the radiotracer from the liver by 60 minutes. The patient then drank 8 ounces of Ensure Plus. Ejection fraction at 60 minutes was 79%. Normal GB ej ection fraction is 35-75%. Post fatty meal symptoms: None. IMPRESSION: 1. Normal HIDA scan. 2. Normal gallbladder ejection fraction.
== END 2023-08-29 09:45 | disposition home or self-care (01) ==
PROVIDERS: PCP Nurse Practitioner Family; Visit Provider Nurse Practitioner Family
DX: R10.11 Right upper quadrant pain (principal)
CPT/HCPCS: 78227; A9537

== ENCOUNTER → 2023-11-07 11:36 | Outpatient (BNVA) | payer MEDICAID, SELFPAY | PROVIDERS: PCP Nurse Practitioner Family; Visit Provider Nurse Practitioner Family | DX: R19.7 Diarrhea, unspecified (principal) | CPT/HCPCS: 83630; 87045; 87177; 87209; 87338; 87427; 87449; 87493 ==

== ENCOUNTER 2024-01-15 06:53 | Day surgery (SDC) | payer MEDICAID, SELFPAY ==
[2024-01-15 07:13] VITALS: BP 151/111; PULSE 68; RESP 18; TEMP 36.4; O2SAT 96
[2024-01-15] MEDS: sodium chloride 0.9% 1,000 ML 30 ML IV (07:21)
[2024-01-15 07:22] LABS: OR HCG Qualitative Urine Negative (Negative)
--- NOTE | 2024-01-15 07:26 | ANES.PREANE2 ---
Pre-Anesthetic Assessment Height/Weight: Height 1.6 m Weight 120.202 kg Temp Pulse Resp BP Pulse Ox O2 Del Method 97.6 F 68 18 151/111 96 Room Air 01/15/24 07:13 01/15/24 07:13 01/15/24 07:13 01/15/24 07:13 01/15/24 07:13 01/15/24 07:13 Operation Date: 01/15/24 08:00 Proposed Procedures p EGD 27692, 42251, G0105, K82.8, R19.7, R10.9, K21.9(Not Applicable) - Thuan Lowry DO s Colonoscopy(Not Applicable) - Thuan Lowry DO Familial anesthetic complications: None Was Beta Alirio taken within 24 hours: N/A Was Clonidine taken within 24 hours: N/A Last intake: Intake Last Liquid Date 01/14/24 Last Liquid Time 20:00 Last Solid Date 01/13/24 Last Solid Time 17:00 Social Tobacco and No alcohol Exam alert, oriented x 3, clear to auscultation bilaterally and regular rate & rhythm Airway Mallampati: Class III Dentition: chipped CV/HEM Hypertension and Palpitations MVP Metabolic Morbid Obesity Anesthetic Plan ASA status: 2 Anesthesia: MAC Risk of > 500 ml blood loss (7ml/kg in children): No Medications/Allergies Home Medications Medication Instructions Recorded Confirmed Last Taken Type loratadine 10 mg tablet (Claritin) 10 mg PO QDAY allergy symptoms #90 09/16/20 01/13/24 01/13/24 Rx tabs docusate sodium 100 mg capsule 100 mg PO BID 11/13/22 01/13/24 01/13/24 History meclizine 25 mg tablet 12.5 mg (1/2 x 25 mg) PO TID PRN 09/06/23 01/13/24 Unknown Rx dizziness #30 tabs metoprolol tartrate 25 mg tablet 12.5 mg (1/2 x 25 mg) PO BID #60 11/06/23 01/13/24 01/15/24 Rx tabs gabapentin 300 mg capsule See Rx Instructions .Route 01/03/24 01/13/24 01/13/24 Rx .COMPLEX #90 caps celecoxib 200 mg capsule 200 mg PO BID PRN Pain 01/15/24 01/15/24 01/13/24 History pantoprazole 40 mg tablet,delayed 40 mg PO BID 01/15/24 01/15/24 01/14/24 History release Allergies Allergy/AdvReac Type Severity Reaction Status Date / Time Penicillins Allergy rash Verified 01/15/24 07:17 diclofenac AdvReac Mild CRAMPING/VAGINAL Verified 01/15/24 07:17 BLEEDING magnesium AdvReac rash Verified 01/15/24 07:17 Current Medications Generic Name Dose Route Start Last Admin Trade Name Leonel PRN Reason Stop Dose Admin Sodium Chloride 1,000 mls @ 30 mls/hr 01/15/24 07:15 01/15/24 07:21 Sodium Chloride 0.9% IV 01/16/24 07:14 30 mls/hr .Q24H KELLIE Administration PFSH Anesthesia Medical History Obesity Abnormal cardiovascular stress test Mitral valve prolapse Supraventricular tachycardia Mitral valve prolapse Lumbar spondylosis Long-term use of high-risk medication Neuropathic pain Other intervertebral disc displacement, lumbar region DDD (degenerative disc disease), lumbar Family History Mother Lung disease COPD/ ASTHMA Myocardial infarct AT AGE 44 Hypertension Bleeding disorder CAD (coronary artery disease) Stroke Father CAD (coronary artery disease) Diabetes Family/Other Cancer Grandmother Cancer Denies family history of Clotting disorder Dementia Chronic kidney disease (CKD) Suicide Anesthesia complication Social History Smoking and tobacco/nicotine status: current every day tobacco/nicotine user Second hand smoke exposure: Yes Alcohol intake: never Substance/Drug Use: never Lives independently: No Household members: family Marital status: Current gender identity: Female Female Reproductive History Date of last menstrual period: 12/24/23 Data Anesthesia Cardiac Studies: Echocardiogram Ultrasound 04/20/20 Sestamibi Stress Test (Cardiology) 05/02/20 Cardiac Event Monitor 09/13/23
--- NOTE | 2024-01-15 08:07 | PM.HP ---
Providers/Chief Complaint Primary Care Provider: IKER Wright Chief Complaint: K82.8 History of Present Illness Yadiel Valdez is a 38 year old female Review of Systems General: Reports: 10 or more systems reviewed and unremarkable except in HPI and below Medications/Allergies Home Medications Medication Instructions Recorded Confirmed Last Taken Type loratadine 10 mg tablet (Claritin) 10 mg PO QDAY allergy symptoms #90 09/16/20 01/13/24 01/13/24 Rx tabs docusate sodium 100 mg capsule 100 mg PO BID 11/13/22 01/13/24 01/13/24 History meclizine 25 mg tablet 12.5 mg (1/2 x 25 mg) PO TID PRN 09/06/23 01/13/24 Unknown Rx dizziness #30 tabs metoprolol tartrate 25 mg tablet 12.5 mg (1/2 x 25 mg) PO BID #60 11/06/23 01/13/24 01/15/24 Rx tabs gabapentin 300 mg capsule See Rx Instructions .Route 01/03/24 01/13/24 01/13/24 Rx .COMPLEX #90 caps celecoxib 200 mg capsule 200 mg PO BID PRN Pain 01/15/24 01/15/24 01/13/24 History pantoprazole 40 mg tablet,delayed 40 mg PO BID 01/15/24 01/15/24 01/14/24 History release Allergies Allergy/AdvReac Type Severity Reaction Status Date / Time Penicillins Allergy rash Verified 01/15/24 07:17 diclofenac AdvReac Mild CRAMPING/VAGINAL Verified 01/15/24 07:17 BLEEDING magnesium AdvReac rash Verified 01/15/24 07:17 PFSH Acute PFSH: Medical History Obesity Abnormal cardiovascular stress test Mitral valve prolapse Supraventricular tachycardia Mitral valve prolapse Lumbar spondylosis Long-term use of high-risk medication Neuropathic pain Other intervertebral disc displacement, lumbar region DDD (degenerative disc disease), lumbar Family History Mother Lung disease COPD/ ASTHMA Myocardial infarct AT AGE 44 Hypertension Bleeding disorder CAD (coronary artery disease) Stroke Father CAD (coronary artery disease) Diabetes Family/Other Cancer Grandmother Cancer Denies family history of Clotting disorder Dementia Chronic kidney disease (CKD) Suicide Anesthesia complication Social History Smoking and tobacco/nicotine status: current every day tobacco/nicotine user Second hand smoke exposure: Yes Alcohol intake: never Substance/Drug Use: never Lives independently: No Household members: family Marital status: Current gender identity: Female Female Reproductive History: Date of last menstrual period: 12/24/23 Vitals/I&O/Wt Last Vital Signs Temp 97.6 F 01/15/24 07:13 Pulse 68 01/15/24 07:13 Resp 18 01/15/24 07:13 BP 151/111 01/15/24 07:13 Pulse Ox 96 01/15/24 07:13 O2 Del Method Room Air 01/15/24 07:13 Weight last 48 hrs Weight 265 lb A&P Assessment and plan (1) GERD (gastroesophageal reflux disease): Qualifiers: Esophagitis presence: without esophagitis Qualified Code(s): K21.9 - Gastro-esophageal reflux disease without esophagitis (2) Diarrhea: (3) Abdominal pain: Plan EGD Diagnostic colonoscopy with random biopsies Attestations Medical Necessity Statement*: home Coding Level of Care Code Acute Code for Chg Fwd Diagnoses Gastroesophageal reflux disease without esophagitis K21.9 Esophagitis presence: without esophagitis Diarrhea R19.7 Abdominal pain R10.9
[2024-01-15] MEDS: EPINEPHrine 1 mg/mL INJ XX (08:30)
[2024-01-15 08:38] VITALS: BP 99/86; PULSE 95; RESP 18; TEMP 36.1; O2SAT 91
[2024-01-15 08:50] VITALS: BP 117/82; PULSE 79; RESP 18; O2SAT 97
--- NOTE | 2024-01-15 09:00 | ANE.PACU2 ---
Inpatient post-anesthesia follow up: Airway intact: Yes Vital signs: Temperature 97.0 F Pulse Rate 79 Respiratory Rate 18 Blood Pressure 117/82 Pulse Oximetry 97 Oxygen Delivery Me thod Room Air Oxygen Flow Rate Fraction of Inspir ed Oxygen Hydration adequate: Yes Nausea and vomiting: No Pain level: 1 Mental status: Baseline
[2024-01-15 09:36] LABS: C.Diff PCR (Lab) NEGATIVE (Negative)
== END 2024-01-15 09:15 | disposition home or self-care (01) ==
PROVIDERS: Anesthesiology; PCP Nurse Practitioner Family; Visit Provider Surgery
PROC: 0DJ08ZZ Inspection of Upper Intestinal Tract, Via Natural or Artificial Opening Endoscopic (ICD-10-PCS; CPT 43235; principal; 2024-01-15 08:00)
PROC: 0DJD8ZZ Inspection of Lower Intestinal Tract, Via Natural or Artificial Opening Endoscopic (ICD-10-PCS; CPT 45378; 2024-01-15 08:00)
DX: R19.7 Diarrhea, unspecified (principal); K21.9 Gastro-esophageal reflux disease without esophagitis; K20.90 Esophagitis, unspecified without bleeding; K63.5 Polyp of colon; K64.8 Other hemorrhoids; R10.9 Unspecified abdominal pain; E66.9 Obesity, unspecified; Z68.42 Body mass index [BMI] 45.0-49.9, adult; F17.200 Nicotine dependence, unspecified, uncomplicated; I10 Essential (primary) hypertension; E66.01 Morbid (severe) obesity due to excess calories
CPT/HCPCS: 43239; 45380; 81025; 82274; 83630; 87045; 87177; 87209; 87427; 87449; 87493; 88305; J0171; J2704; J7030

== ENCOUNTER 2024-01-21 07:51 | Day surgery (SDC) | payer MEDICAID, SELFPAY ==
[2024-01-21] VITALS (11 sets, daily range): BP systolic 110–149; BP diastolic 67–99; PULSE 62–78; RESP 14–16; TEMP 36.3–36.6; O2SAT 92–98; BMI 46.9
--- NOTE | 2024-01-21 08:05 | PM.HP ---
Providers/Chief Complaint Primary Care Provider: IKER Wright Chief Complaint: K82.8 History of Present Illness Yadiel Valdez is a 38 year old female who presented to my office with epigastric abdominal pain. Gallbladder ultrasound was within normal limits and HIDA scan did show a slightly elevated ejection fraction. EGD was within normal limits Review of Systems General: Reports: 10 or more systems reviewed and unremarkable except in HPI and below Medications/Allergies Home Medications Medication Instructions Recorded Confirmed Last Taken Type loratadine 10 mg tablet (Claritin) 10 mg PO QDAY allergy symptoms #90 09/16/20 01/20/24 01/20/24 Rx tabs docusate sodium 100 mg capsule 100 mg PO BID 11/13/22 01/20/24 01/20/24 History meclizine 25 mg tablet 12.5 mg (1/2 x 25 mg) PO TID PRN 09/06/23 01/20/24 01/20/24 Rx dizziness #30 tabs metoprolol tartrate 25 mg tablet 12.5 mg (1/2 x 25 mg) PO BID #60 11/06/23 01/20/24 01/20/24 Rx tabs celecoxib 200 mg capsule 200 mg PO BID PRN Pain 01/15/24 01/20/24 01/20/24 History hydrocortisone 2.5 % topical cream 1 applic [place] QID 3 weeks #30 grams 01/15/24 01/20/24 01/19/24 Rx with perineal applicator (Anusol-HC) pantoprazole 40 mg tablet,delayed 40 mg PO BID 01/15/24 01/20/24 01/20/24 History release gabapentin 300 mg capsule 300 mg PO TID 01/20/24 01/20/24 01/20/24 History Allergies Allergy/AdvReac Type Severity Reaction Status Date / Time Penicillins Allergy rash Verified 01/15/24 07:17 diclofenac AdvReac Mild CRAMPING/VAGINAL Verified 01/15/24 07:17 BLEEDING magnesium AdvReac rash Verified 01/15/24 07:17 PFSH Acute PFSH: Medical History Obesity Abnormal cardiovascular stress test Mitral valve prolapse Supraventricular tachycardia Mitral valve prolapse Lumbar spondylosis Long-term use of high-risk medication Neuropathic pain Other intervertebral disc displacement, lumbar region DDD (degenerative disc disease), lumbar Family History Mother Lung disease COPD/ ASTHMA Myocardial infarct AT AGE 44 Hypertension Bleeding disorder CAD (coronary artery disease) Stroke Father CAD (coronary artery disease) Diabetes Family/Other Cancer Grandmother Cancer Denies family history of Clotting disorder Dementia Chronic kidney disease (CKD) Suicide Anesthesia complication Social History Smoking and tobacco/nicotine status: current every day tobacco/nicotine user Second hand smoke exposure: Yes Alcohol intake: never Substance/Drug Use: never Lives independently: No Household members: family Marital status: Current gender identity: Female Vitals/I&O/Wt Weight last 48 hrs Weight 265 lb A&P Assessment and plan (1) Biliary dyskinesia: Plan Laparoscopic cholecystectomy The risks and benefits of the procedure, including but not limited to, bleeding, infection, scar, numbness, pain, damage to surrounding structures, damage to common bile duct requiring additional surgery, conversion to an open procedure, were explained to the patient. He is understanding of the risks and wishes to proceed. Attestations Medical Necessity Statement*: Home Coding Level of Care Code Acute Code for Chg Fwd Diagnoses Biliary dyskinesia K82.8
[2024-01-21 08:11] LABS: OR HCG Qualitative Urine Negative (Negative)
[2024-01-21] MEDS: sodium chloride 0.9% 1,000 ML 30 ML IV (08:31)
[2024-01-21] MEDS: vancomycin 1,500 MG/300 ML PIGGYBACK 200 MG IV (08:40)
--- NOTE | 2024-01-21 08:43 | ANES.PREANE2 ---
Pre-Anesthetic Assessment Height/Weight: Height 1.6 m Weight 120.202 kg Temp Pulse Resp BP Pulse Ox O2 Del Method 97.4 F L 78 16 149/78 98 Room Air 01/21/24 08:08 01/21/24 08:08 01/21/24 08:08 01/21/24 08:08 01/21/24 08:08 01/21/24 08:15 Operation Date: 01/21/24 09:40 Proposed Procedures p Laparoscopic [id number], K82.8(Not Applicable) - Thuan Lowry DO Familial anesthetic complications: none Was Beta Alirio taken within 24 hours: Yes Was Clonidine taken within 24 hours: N/A Last intake: Intake Last Liquid Date 01/20/24 Last Liquid Time 19:00 Last Solid Date 01/20/24 Last Solid Time 19:00 Social No alcohol and No tobacco Exam alert, oriented x 3, clear to auscultation bilaterally and regular rate & rhythm Airway Mallampati: Class II Dentition: full Pulmonary None reported CV/HEM Arrythmia (SVT) and Hypertension MVP, mild MVR GI Gastroesophageal Reflux Disease Metabolic Morbid Obesity Anesthetic Plan ASA status: 2 Anesthesia: General Risk of > 500 ml blood loss (7ml/kg in children): No Medications/Allergies Home Medications Medication Instructions Recorded Confirmed Last Taken Type loratadine 10 mg tablet (Claritin) 10 mg PO QDAY allergy symptoms #90 09/16/20 01/20/24 01/20/24 Rx tabs docusate sodium 100 mg capsule 100 mg PO BID 11/13/22 01/20/24 01/20/24 History meclizine 25 mg tablet 12.5 mg (1/2 x 25 mg) PO TID PRN 09/06/23 01/20/24 01/20/24 Rx dizziness #30 tabs metoprolol tartrate 25 mg tablet 12.5 mg (1/2 x 25 mg) PO BID #60 11/06/23 01/20/24 01/21/24 Rx tabs celecoxib 200 mg capsule 200 mg PO BID PRN Pain 01/15/24 01/20/24 01/20/24 History hydrocortisone 2.5 % topical cream 1 applic [place] QID 3 weeks #30 grams 01/15/24 01/20/24 01/19/24 Rx with perineal applicator (Anusol-HC) pantoprazole 40 mg tablet,delayed 40 mg PO BID 01/15/24 01/20/24 01/20/24 History release gabapentin 300 mg capsule 300 mg PO TID 01/20/24 01/20/24 01/20/24 History Allergies Allergy/AdvReac Type Severity Reaction Status Date / Time Penicillins Allergy rash Verified 01/15/24 07:17 diclofenac AdvReac Mild CRAMPING/VAGINAL Verified 01/15/24 07:17 BLEEDING magnesium AdvReac rash Verified 01/15/24 07:17 Current Medications Generic Name Dose Route Start Last Admin Trade Name Leonel PRN Reason Stop Dose Admin Sodium Chloride 1,000 mls @ 30 mls/hr 01/20/24 14:15 01/21/24 08:31 Sodium Chloride 0.9% IV 01/21/24 14:14 30 mls/hr .Q24H KELLIE Administration Vancomycin HCl 1,500 mg in 300 mls @ 200 mls/hr 01/21/24 07:56 01/21/24 08:40 Vancocin IV 01/21/24 09:25 200 mls/hr [employer] Administration Protocol [facility] Anesthesia Medical History Obesity Abnormal cardiovascular stress test Mitral valve prolapse Supraventricular tachycardia Mitral valve prolapse Lumbar spondylosis Long-term use of high-risk medication Neuropathic pain Other intervertebral disc displacement, lumbar region DDD (degenerative disc disease), lumbar Family History Mother Lung disease COPD/ ASTHMA Myocardial infarct AT AGE 44 Hypertension Bleeding disorder CAD (coronary artery disease) Stroke Father CAD (coronary artery disease) Diabetes Family/Other Cancer Grandmother Cancer Denies family history of Clotting disorder Dementia Chronic kidney disease (CKD) Suicide Anesthesia complication Social History Smoking and tobacco/nicotine status: current every day tobacco/nicotine user Second hand smoke exposure: Yes Alcohol intake: never Substance/Drug Use: never Lives independently: No Household members: family Marital status: Current gender identity: Female Data Anesthesia Cardiac Studies: Echocardiogram Ultrasound 04/20/20 Sestamibi Stress Test (Cardiology) 05/02/20 Cardiac Event Monitor 09/13/23
[2024-01-21] MEDS: lidocaine-epi 2% PF 1:200,000 20 mL SDV XX (09:24)
--- NOTE | 2024-01-21 10:09 | P.OP_ITS ---
Operative Report Date of procedure: January 21, 2024 Surgeon: Thuan Lowry DO Brief History: This is a very pleasant 38-year-old female presented my office with abdominal pain. A full workup led to a diagnosis of biliary dyskinesia. Laparoscopic cholecystectomy is indicated. The risks and benefits were explained and documented. Procedure: Preoperative diagnosis: Biliary dyskinesia Postoperative diagnosis: Same Procedure performed: Laparoscopic cholecystectomy Surgeon: Dr. Thuan Lowry DO Estimated blood loss: 5 mL Specimens: Gallbladder to pathology Complications: None apparent Description of procedure: Patient was wheeled into the operative room and placed on the OR table in a supine position. Abdomen was inspected prepped and draped in usual sterile fashion. Time-out was performed and all present were in agreement. A 15 blade scalp was used to make a stab incision in the left upper quadrant and intra- abdominal insufflation was achieved using a Veress needle. After localizing the tissue incisions were made and a 5 millimeter trocar was placed into the umbilicus as well as 2 in the right upper quadrant. A 12 millimeter trocar was placed in the epigastrium. Gallbladder was grasped and elevated. The triangle of Calot was carefully dissected using blunt dissection and electrocautery until the triangle of Calot clearly identified. The cystic duct was clipped proximally and double clipped distally. The duct was then ligated proximally. The cystic artery was doubly clipped and ligated. The gallbladder was then removed from the liver bed using electrocautery. The gallbladder was removed from the abdomen using an Endo-Catch bag through the epigastric incision. The liver bed was inspected and no bleeding was seen. The abdomen was irrigated and suctioned. All ports removed. Skin was washed and dried. Incisions were closed with 4-0 Monocryl in a subcuticular interrupted fashion. Skin glue was applied. Patient tolerated the procedure well.
[2024-01-21] MEDS: HYDROcodone-acetaminophen 7.5-325 mg Tablet 1 TAB PO (11:00)
--- NOTE | 2024-01-21 11:26 | SUR.PHASEII ---
ABDOMEN INCISIONS DRY AND INTACT. NO REDNESS OR DRAINAGE.
--- NOTE | 2024-01-21 11:45 | ANE.PACU2 ---
Inpatient post-anesthesia follow up: Airway intact: Yes Vital signs: Temperature 97.9 F Pulse Rate 66 Respiratory Rate 16 Blood Pressure 133/87 Pulse Oximetry 96 Oxygen Delivery Me thod Room Air Oxygen Flow Rate 6 Fraction of Inspir ed Oxygen Hydration adequate: Yes Nausea and vomiting: No Pain level: 1 Mental status: Baseline
== END 2024-01-21 11:45 | disposition home or self-care (01) ==
PROVIDERS: Anesthesiology; PCP Nurse Practitioner Family; Visit Provider Surgery
PROC: 0FT44ZZ Resection of Gallbladder, Percutaneous Endoscopic Approach (ICD-10-PCS; CPT 47562; principal; 2024-01-21 09:30)
DX: K80.10 Calculus of gallbladder with chronic cholecystitis without obstruction (principal); E66.9 Obesity, unspecified; Z68.42 Body mass index [BMI] 45.0-49.9, adult; F17.200 Nicotine dependence, unspecified, uncomplicated; I10 Essential (primary) hypertension
CPT/HCPCS: 47562; 81025; 88304; J1100; J1885; J2250; J2405; J2704; J3010; J3370; J7030

== ENCOUNTER → 2024-02-10 11:35 | Outpatient (BNVA) | payer MEDICAID, SELFPAY | PROVIDERS: PCP Nurse Practitioner Family; Visit Provider Nurse Practitioner Family | DX: G43.909 Migraine, unspecified, not intractable, without status migrainosus (principal); I10 Essential (primary) hypertension; E55.9 Vitamin D deficiency, unspecified | CPT/HCPCS: 80053; 80061; 81015; 82306; 82607; 83735; 84443; 85025 ==

== ENCOUNTER 2024-04-17 13:34 | Outpatient (CLI) | payer MEDICAID, SELFPAY ==
--- NOTE | 2024-04-17 13:45 | MR_ITS ---
WS: [id number] MRI HEAD WITH CONTRAST TECHNIQUE: Sagittal T1, T2 axial, T2 axial FLAIR, axial susceptibility weighted imaging, axial diffus ion weighted images, and coronal T2 images were obtained. Pre and post-T1 axial and post T1 coronal i mages. ADC and FSPGR images. CLINICAL INFORMATION: G43.909 - Migraine, unspecified, not intractable, without... COMPARISON: None. FINDINGS: No evidence of restricted diffusion to suggest acute ischemia. Ventricular system and basal cisterns are patent. 2 or 3 tiny foci of T2 hyperintensity in the periventricular white matter nonspecific but of doubtful clinical significance. This can be seen with migraine headaches. Normal posterior fossa. Normal vascular flow voids at the skull base. No extra-axial fluid collection s. No evidence of mass or mass effect. Paranasal sinuses and mastoid air cells are well aerated. No h emosiderin on the susceptibly weighted images. Normal optic chiasm and pituitary infundibulum. Tempor al lobes and hippocampal formations are normal in appearance. No abnormal gadolinium enhancement. Normal dural venous sinuses. No other acute findings. MR/MR head wo/w con [id number] IMPRESSION: 1. No evidence of restricted diffusion to suggest acute ischemia. 2. 2 or 3 tiny foci of T2 hyperintensity in the periventricular white matter n onspecific in a patient of this age but of doubtful clinical significance. This can be seen with migraine headaches. 3. No other suspicious intracranial signal abnormalities 4. No abnormal gadolinium enhancement. 5. No other acute findings.
[2024-04-17] MEDS: gadobenate dimeglumine 20 mL vial IV (14:41)
== END 2024-04-17 13:35 | disposition home or self-care (01) ==
LOC: RAD 13:34
PROVIDERS: PCP Nurse Practitioner Family; Visit Provider Nurse Practitioner Family
DX: G43.909 Migraine, unspecified, not intractable, without status migrainosus (principal)
CPT/HCPCS: 70553

== ENCOUNTER → 2024-07-20 12:21 | Outpatient (BNVA) | payer MEDICAID, SELFPAY | PROVIDERS: PCP Nurse Practitioner Family; Visit Provider Nurse Practitioner Family | DX: I10 Essential (primary) hypertension (principal) | CPT/HCPCS: 80053; 80061; 83036; 84443; 85025 ==

== ENCOUNTER → 2025-01-20 12:49 | Outpatient (BNVA) | payer MEDICAID, SELFPAY | PROVIDERS: PCP Nurse Practitioner Family; Visit Provider Nurse Practitioner Family | DX: I10 Essential (primary) hypertension (principal); E66.9 Obesity, unspecified | CPT/HCPCS: 80053; 80061; 83036; 84443; 85025 ==

== ENCOUNTER → 2025-02-23 12:25 | Outpatient (BNVA) | payer MEDICAID, SELFPAY | PROVIDERS: PCP Nurse Practitioner Family; Visit Provider Nurse Practitioner Family | DX: R94.4 Abnormal results of kidney function studies (principal) | CPT/HCPCS: 80048 ==

== ENCOUNTER → 2025-05-20 12:59 | Outpatient (BNVA) | payer MEDICAID, SELFPAY | PROVIDERS: PCP Nurse Practitioner Family; Visit Provider Nurse Practitioner Family | DX: Z12.4 Encounter for screening for malignant neoplasm of cervix (principal) | CPT/HCPCS: 87624 ==

== ENCOUNTER 2025-05-28 11:00 | Outpatient (CLI) | payer MEDICAID, SELFPAY ==
--- NOTE | 2025-05-28 11:30 | US_ITS ---
WS: [id number] US pelv w/transvag [id number] HISTORY: R10.21 - Pelvic and perineal pain right side COMPARISON: None available. Uterus: 8.8 cm x 4.6 cm x 4.7 cm. Uterus is normal size. Heterogeneous appearance of the myometrium with areas of decreased echogenicity. Findings consistent with a fibroid uterus. The largest in the posterior mid myometrium measures 1.0 x 1.4 x 0.7 cm. Endometrium: 0.5 cm. Normal. Right ovary: 2.6 cm x 1.1 cm x 2.5 cm. Normal size and vascularity, no cystic or solid masses. Left ovary: 1.3 cm x 1.3 cm x 1.2 cm. Normal size and vascularity, no cystic or solid masses. No free fluid in the cul-de-sac. US/US pelv w/transvag [id number] IMPRESSION: 1. Heterogeneous myometrium. Fibroid uterus. Largest fibroid posteriorly measu ring 1.0 x 1.4 x 0.7 cm. 2. Normal endometrium. 3. No adnexal masses.
== END 2025-05-28 11:01 | disposition home or self-care (01) ==
PROVIDERS: PCP Nurse Practitioner Family; Visit Provider Nurse Practitioner Family
DX: R10.21 Pelvic and perineal pain right side (principal); D25.9 Leiomyoma of uterus, unspecified; N85.8 Other specified noninflammatory disorders of uterus
CPT/HCPCS: 76830; 76856